=== PATIENT | male | born 1955 | race Caucasian/White ===

== ENCOUNTER 2016-11-25 11:26 | Emergency (ER) | payer MEDICAID, OTHER ==
[~2016-11-25] VITALS: Wt 81.4 kg
[~2016-11-25 11:26] MED LIST: FURO-109 PO; GLIM4TAB PO; LACT20SO12 PO; LISI10TA2 PO; METF1000 PO; PROP40TA4 PO; RIFA550T4 PO; SPIR100T PO; [UNRECOGNIZED DRUG - CODE] IN
[2016-11-25] MEDS ORDERED: morphine 4 MG/ML VIAL IV STA (14:00)
[2016-11-25] MEDS ORDERED: SOD CHLORIDE 0.9% 1,000 ML IV STA (14:00)
[2016-11-25] MEDS ORDERED: ONDANSETRON 4 MG INJ IV STA (14:00)
[2016-11-25 14:33] LABS: ADD SCAN DIFF NO
[2016-11-25 14:35] LABS: ABNORMAL IP MESSAGE 1; BASOPHILS % 0.2 % (0.0-2.0); EOSINOPHILS % 0.2 % (0.0-7.0); HEMATOCRIT 40.9 % (42.0-52.0); HEMOGLOBIN 14.4 g/dl (14.0-18.0); LYMPHOCYTES # 0.4 10^3/ul (0.8-2.9); MEAN CORPUSCULAR HEMOGLOBIN 34.7 pg (29.0-33.0); MEAN CORPUSCULAR HGB CONC 35.2 g/dl (32.0-37.0); MEAN CORPUSCULAR VOLUME 98.6 fl (82.0-101.0); MEAN PLATELET VOLUME 10.7 fl (7.4-10.4); MONOCYTE # 0.6 10^3/ul (0.3-0.9); MONOCYTES % 9.7 % (0.0-11.0); NEUTROPHIL # 5.2 10^3/ul (1.6-7.5); NEUTROPHILS % 82.4 % (39.0-77.0); PLATELET COUNT 74 10^3/UL (140-415); RED BLOOD COUNT 4.15 10^6/ul (4.70-6.10); RED CELL DISTRIBUTION WIDTH 13.6 % (11.5-14.5); WHITE BLOOD COUNT 6.3 10^3/ul (4.8-10.8)
[2016-11-25 14:56] LABS: CREATININE 1.07 mg/dl (0.61-1.24)
[2016-11-25 14:57] LABS: ALBUMIN 4.1 g/dl (3.3-4.9); ALBUMIN/GLOBULIN RATIO 1.36; BILIRUBIN,INDIRECT 3.9 mg/dl (0-1.1); BILIRUBIN,TOTAL 3.9 mg/dl (0.2-1.3); CALCIUM 8.7 mg/dl (8.4-10.2); TOTAL PROTEIN 7.1 g/dl (6.1-8.1)
[2016-11-25] MEDS ORDERED: UDLOM GTB (15:43)
[2016-11-25] MEDS ORDERED: ONDA4TAB8 PO (15:43)
[2016-11-25] MEDS ORDERED: NAPR-688 PO (15:43)
--- NOTE | 2016-11-25 15:49 | ERD ---
ER Documentation Chief Complaint Date/Time DATE: 11/25/16 TIME: 15:44 Chief Complaint abd pain n/v/d HPI This 61-year-old male presents with 2 days of nausea vomiting and diarrhea. The diarrhea is copious and watery eyes. The vomiting has no blood or bile. He has a generalized intermittent crampy abdominal pain. Denies fever and chills. ROS All systems reviewed and are negative except as per history of present illness. Medications Home Meds Active Scripts Naproxen* (Naproxen*) 500 Mg Tablet, 500 MG PO BID Y for PAIN, #14 TAB Prov:ALENA RAYA DO 11/25/16 Diphenoxylate Hcl-Atropine* (Lomotil*) 5 Ml Soln, 5 ML GTB Q6H Y for DIARRHEA, # 14 ML Prov:ALENA RAYA DO 11/25/16 Ondansetron Hcl* (Zofran*) 4 Mg Tablet, 4 MG PO Q6H for NAUSEA AND/OR VOMITING, #30 TAB Prov:ALENA RAYA DO 11/25/16 Blood Sugar Diagnostic, Drum (Accu-Chek) 1 Strip Strip, 1 STRIP IN AC MEALS AND BEDTIME, #120 STRIP Prov:RITA CRESPO 06/16/14 Spironolactone* (Aldactone*) 100 Mg Tablet, 100 MG PO DAILY for 60 Days, TAB Prov:RITA CRESPO 06/16/14 Furosemide* (Lasix*) 40 Mg Tablet, 40 MG PO DAILY for 60 Days, TAB Prov:RITA CRESPO 06/16/14 Rifaximin* (Xifaxan*) 550 Mg Tablet, 550 MG PO BID for 30 Days Prov:RITA CRESPO 06/16/14 Lactulose* (Cephulac*) 20 Gm/30 Ml Soln, 20 GM PO Q12 for 30 Days Prov:RITA CRESPO 06/16/14 Reported Medications Metformin Hcl* (Metformin Hcl*) 1,000 Mg Tablet, 1000 MG PO BID, TAB 06/02/14 Propranolol Hcl* (Propranolol Hcl*) 40 Mg Tablet, 40 MG PO BID, TAB 06/02/14 Glimepiride* (Glimepiride*) 4 Mg Tablet, 4 MG PO BID, TAB 06/02/14 Lisinopril* (Lisinopril*) 10 Mg Tablet, 10 MG PO DAILY, TAB 06/02/14 Allergies Allergies: Coded Allergies: No Known Drug Allergies (Verified Allergy, Mild, 06/01/14) PMhx/Soc History of Surgery: No Anesthesia Reaction: No Hx Neurological Disorder: No Hx Respiratory Disorders: No Hx Cardiac Disorders: No Hx Psychiatric Problems: No Hx Miscellaneous Medical Probl: Yes Hx Alcohol Use: No Hx Substance Use: No Hx Tobacco Use: No Smoking Status: Never smoker Physical Exam Vitals Vital Signs Date Time Temp Pulse Resp B/P Pulse Ox O2 Delivery O2 Flow Rate FiO2 11/25/16 11:43 99.0 72 20 121/73 97 Physical Exam Const: [] No distress Head: Atraumatic Eyes: Normal Conjunctiva ENT: Normal External Ears, Nose and Mouth. Neck: Full range of motion..~ No meningismus. Resp: Clear to auscultation bilaterally Cardio: Regular rate and rhythm, no murmurs Abd: Soft, very mild generalized abdominal pain without guarding or rebound, smiling during exam, non distended. Normal bowel sounds Skin: No petechiae or rashes Back: No midline or flank tenderness Ext: No cyanosis, or edema Neur: Awake and alert and oriented 3, no focal deficits Psych: Normal Mood and Affect Result Diagram: 11/25/16 1430 11/25/16 1430 Results 24 hrs Laboratory Tests Test 11/25/16 14:30 White Blood Count 6.310^3/ul Red Blood Count 4.1510^6/ul Hemoglobin 14.4g/dl Hematocrit 40.9% Mean Corpuscular Volume 98.6fl Mean Corpuscular Hemoglobin 34.7pg Mean Corpuscular Hemoglobin Concent 35.2g/dl Red Cell Distribution Width 13.6% Platelet Count 7410^3/UL Mean Platelet Volume 10.7fl Neutrophils % 82.4% Lymphocytes % 7.0% Monocytes % 9.7% Eosinophils % 0.2% Basophils % 0.2% Nucleated Red Blood Cells % 0.0/100WBC Neutrophils # 5.210^3/ul Lymphocytes # 0.410^3/ul Monocytes # 0.610^3/ul Eosinophils # 0.010^3/ul Basophils # 0.010^3/ul Nucleated Red Blood Cells # 0.010^3/ul Sodium Level 139mmol/L Potassium Level 4.0mmol/L Chloride Level 110mmol/L Carbon Dioxide Level 19mmol/L Anion Gap 14 Blood Urea Nitrogen 21mg/dl Creatinine 1.07mg/dl Glucose Level 187mg/dl Lactic Acid Level 2.2mmol/L Calcium Level 8.7mg/dl Total Bilirubin 3.9mg/dl Direct Bilirubin 0.00mg/dl Indirect Bilirubin 3.9mg/dl Aspartate Amino Transf (AST/SGOT) 73IU/L Alanine Aminotransferase (ALT/SGPT) 68IU/L Alkaline Phosphatase 106IU/L Total Protein 7.1g/dl Albumin 4.1g/dl Globulin 3.00g/dl Albumin/Globulin Ratio 1.36 Lipase 202U/L Current Medications Medications (Trade) Dose Ordered Sig/Anant Route PRN Reason Start Time Stop Time Status Last Admin Dose Admin Sodium Chloride (NS) 1,000 ml @ 1,000 mls/hr Q1H STAT IV 11/25/16 14:00 11/25/16 14:59 DC 11/25/16 14:22 Morphine Sulfate (morphine) 4 mg ONCE STAT IV 11/25/16 14:00 11/25/16 14:01 DC 11/25/16 14:23 Ondansetron HCl (Zofran Inj) 4 mg ONCE STAT IV 11/25/16 14:00 11/25/16 14:01 DC 11/25/16 14:22 Procedures/MDM Likely viral gastroenteritis and 61-year-old male. Does have mild elevated liver enzymes, thrombocytopenia, mildly elevated bilirubin. Has no specific tenderness in the right upper quadrant. Reviewed his CT from prior visit he has fatty liver. Pending his laboratories again taken with him to his primary care doctor. He does have good primary care follow-up. The ER was given a liter of normal saline as well as morphine and Zofran. He was feeling much better and was able to take p.o. in the emergency room. We did discharge him with Zofran, naproxen, Lomotil. Return precautions are given and primary care follow-up in 2-3 days is advised. Departure Diagnosis: Primary Impression: Nausea, vomiting, and diarrhea Condition: Stable Patient Instructions: Gastroenteritis, Viral (6Y-Adult) Additional Instructions: Llame al doctor MAANA y jairo arabella LARRY PARA DENTRO DE 2-3 NORMAN.Dgale a la secretaria que nosotros le instruimos hacer esta larry.Avise o llame si fontana condicin se empeora antes de la larry. Regresa aqui si peor o no mejor. ALENA RAYA DO Nov 25, 2016 15:49
[2016-11-25 16:26] LABS: ADD UMIC YES; URINE BILIRUBIN (Dip) 1+ (NEGATIVE); URINE BLOOD (Dip) NEGATIVE (NEGATIVE); URINE COLOR AMBER (YELLOW); URINE GLUCOSE (Dip) NEGATIVE (NEGATIVE); URINE KETONES (Dip) NEGATIVE (NEGATIVE); URINE LEUKOCYTE ESTERASE (Dip) NEGATIVE (NEGATIVE); URINE NITRITE (Dip) POSITIVE (NEGATIVE); URINE TOTAL PROTEIN (Dip) 1+ (NEGATIVE); URINE UROBILINOGEN (Dip) 1.0 E.U./dL (0.1-1.0)
[2016-11-25 16:40] LABS: BACTERIA,URINE MODERATE; ICTOTEST NEGATIVE (NEGATIVE); MUCUS,URINE MANY; TRANSITIONAL EPI CELLS,URINE MODERATE; URINE RBCS 0-2 /HPF (0)
[2016-11-25 17:04] VITALS: BP 118/70; PULSE 87; RESP 20; TEMP 98.3
== END 2016-11-25 17:05 | disposition home or self-care (01) ==
LOC: E/R 11:26
DX: R11.2 Nausea with vomiting, unspecified (principal); R19.7 Diarrhea, unspecified; R40.2142 Coma scale, eyes open, spontaneous, at arrival to emergency department; R40.2252 Coma scale, best verbal response, oriented, at arrival to emergency department; R40.2362 Coma scale, best motor response, obeys commands, at arrival to emergency department; Z79.84 Long term (current) use of oral hypoglycemic drugs
CPT/HCPCS: 36415; 80053; 81001; 83605; 83690; 85025; 96374; 96375; J2270; J2405; J7030; Z7502

== ENCOUNTER 2017-08-25 15:56 | Inpatient (IN) | END 2017-08-26 13:15 | disposition home or self-care (01) | DRG 442 ==

== ENCOUNTER 2017-11-19 12:53 | Day surgery (SDC) | END 2017-11-19 18:10 | disposition home or self-care (01) ==

== ENCOUNTER 2018-06-05 11:05 | Day surgery (SDC) | END 2018-06-05 16:35 | disposition home or self-care (01) ==

== ENCOUNTER 2018-11-09 09:29 | Emergency (ER) | payer MEDICAID, OTHER ==
[~2018-11-09] VITALS: Wt 85.0 kg
[~2018-11-09 09:29] MED LIST changes: -FURO-109 PO; -GLIM4TAB PO; +INSU100I33 SC; +INSULIN GLARGINE; -LACT20SO12 PO; -LISI10TA2 PO; -METF1000 PO; +PROP10TA6 PO; -PROP40TA4 PO; -RIFA550T4 PO; -SPIR100T PO; +SPIR25TA PO; +TEMA15CA6 PO; -[UNRECOGNIZED DRUG - CODE] IN; +lactulose; +omeprazole; +propranolol; +spirinolactone
[2018-11-09 09:32] VITALS: BP 126/62; PULSE 68; RESP 18; Wt 85.0 kg
[2018-11-09] MEDS ORDERED: IBUPROFEN 600 MG TAB PO ONE (10:00)
[2018-11-09] MEDS ORDERED: LACT10SO5 PO (10:06)
[2018-11-09] MEDS ORDERED: INSU100I33 SC (10:06)
[2018-11-09] MEDS ORDERED: SPIR25TA PO (10:07)
[2018-11-09] MEDS ORDERED: PROP10TA6 PO (10:07)
--- NOTE | 2018-11-09 10:11 | ERD ---
ER Documentation Chief Complaint Chief Complaint RIGHT ANKLE PAIN/REDNESS X 5 DAYS, HAS SKIN GRAFT 7 YEARS AGO HPI This is a 63-year-old male with a history of hypertension, diabetes, and previous skin ulcer with a skin debridement and grafting to the right ankle who presents to the ER for evaluation of some pain in redness of the skin of the right ankle. He the patient denies any trauma to the area, denies any fevers chills nausea or vomiting or numbness or tingling in the foot. The patient came to the ER today for evaluation. ROS All systems reviewed and are negative except as per history of present illness. Medications Home Meds Reported Medications Propranolol Hcl* (Propranolol Hcl*) 10 Mg Tablet, 10 MG PO TID, TAB 11/09/18 Spironolactone* (Aldactone*) 25 Mg Tablet, 25 MG PO DAILY, #30 TAB 11/09/18 Lactulose* (Lactulose*) 10 Gm/15 Ml Solution, 30 GM PO QID, ML 11/09/18 Insulin Glargine,Hum.rec.anlog (Basaglar Kwikpen U-100) 100 Unit/1 Ml Insuln.p en, 35 UNIT SC QHS, EA 11/09/18 Discontinued Reported Medications [Insulin Glargine] No Conflict Check 06/05/18 [spirinolactone] No Conflict Check 06/05/18 [omeprazole] No Conflict Check 06/05/18 [propranolol] No Conflict Check 06/05/18 [lactulose] No Conflict Check 06/05/18 Insulin Glargine,Hum.rec.anlog (Basaglar Kwikpen U-100) 100 Unit/1 Ml Insuln.pen, 35 UNIT SC QHS, EA 08/25/17 Spironolactone* (Aldactone*) 25 Mg Tablet, 25 MG PO DAILY, #30 TAB 08/25/17 Propranolol Hcl* (Propranolol Hcl*) 10 Mg Tablet, 10 MG PO TID, TAB 08/25/17 Temazepam* (Restoril*) 15 Mg Capsule, 15 MG PO HS PRN for INSOMNIA, CAP 08/25/17 Allergies Allergies: Coded Allergies: No Known Drug Allergies (Verified Allergy, Mild, 11/09/18) PMhx/Soc History of Surgery: Yes (RIGHT ANKLE SX) Anesthesia Reaction: No Hx Neurological Disorder: No Hx Respiratory Disorders: No Hx Cardiac Disorders: No Hx Psychiatric Problems: No Hx Miscellaneous Medical Probl: Yes (DUODENAL ULCER, CIRRHOSIS) Hx Alcohol Use: Yes (4 YEARS AGO) Hx Substance Use: No Hx Tobacco Use: No Smoking Status: Former smoker Physical Exam Vitals Vital Signs Date Temp Pulse Resp B/P (MAP) Pulse Ox O2 O2 Flow FiO2 Time Delivery Rate 11/09/18 98.1 68 18 126/62 99 09:32 (83) Physical Exam Const: No acute distress Head: Atraumatic Eyes: Normal Conjunctiva ENT: Normal External Ears, Nose and Mouth. Neck: Full range of motion. No meningismus. Resp: Clear to auscultation bilaterally Cardio: Regular rate and rhythm, no murmurs Abd: Soft, non tender, non distended. Normal bowel sounds Skin: No petechiae or rashes Back: No midline or flank tenderness Ext: Mild erythema of the medial portion of the right ankle just proximal to the medial malleolus, no abscess formation, negative skin sloughing, negative Nikolsky sign, no cyanosis, or edema Neur: Awake and alert Psych: Normal Mood and Affect Results 24 hrs Current Medications Medications Dose Sig/Anant Start Time Status Last (Trade) Ordered Route PRN Stop Time Admin Dose Reason Admin Ibuprofen 600 mg ONCE ONCE 11/09/18 DC 11/09/18 (Motrin) PO 10:00 09:47 11/09/18 10:01 Procedures/MDM X-ray Ankle 3V Interpreted by me: Bones: [No fracture] Joints: No dislocation This 63-year-old male presents to the ER for evaluation of erythema and redness of the area just proximal to the right medial malleolus. The patient did have some skin grafting done to the area years ago. On my exam there was mild erythema. X-ray was obtained shows no signs of underlying fracture or osteomyelitis. The patient is afebrile, nontoxic-appearing. The patient will benefit from a short course of antibiotics and anti-inflammatory medication. The patient likely has some cellulitis with no abscess formation. He will be discharged home with a prescription for Motrin, and doxycycline. Departure Diagnosis: Primary Impression: Cellulitis of right ankle Condition: Stable PORSHA COLEMAN DO November 09, 2018 10:11
[2018-11-09] MEDS ORDERED: DOXY100T20 PO (10:12)
[2018-11-09] MEDS ORDERED: IBUP-1542 PO (10:12)
== END 2018-11-09 10:25 | disposition home or self-care (01) ==
LOC: E/R 09:29
DX: L03.115 Cellulitis of right lower limb (principal); I10 Essential (primary) hypertension; E11.9 Type 2 diabetes mellitus without complications; Z79.4 Long term (current) use of insulin; Z87.891 Personal history of nicotine dependence
CPT/HCPCS: 73610; Z7502; Z7610